=== PATIENT | male | born 1970 | race Caucasian/White ===

== ENCOUNTER → 2017-05-24 | Outpatient (CLI) | payer BC ==
[~2017-05-24] MED LIST: ASPIRIN81 M2 PO; FLONASE 0.05% N16 G1; NEXIUM PO; ZESTORETIC 20-1 EAC1 PO
--- NOTE | ~2017-05-24 | EKG ---
PATIENT: RADHA REYNA UNIT #: [id number] Ventricular Rate: 78 BPM Atrial Rate: 78 BPM P-R Interval: 150 ms QRS Duration: 96 ms Q-T Interval: 414 ms QTC Calculation(Bezet): 471 ms P [place]: 16 degrees Calculated R [place]: 19 degrees Calculated T [place]: 35 degrees Diagnosis Line: Normal sinus rhythm Diagnosis Line: Normal ECG Diagnosis Line: No previous ECGs available Diagnosis Line: Confirmed by KAIDEN MAZARIEGOS MD ([id number]) on Diagnosis Line: 05/25/2017 8:00:32 AM INTERPRETING MD: YAIR CRENSHAW
[2017-05-24 15:51] LABS: BUN/CREATININE RATIO 17.5; CALCIUM SERUM 9.3 mg/dL (8.4-10.2); CREATININE SERUM 0.8 mg/dL (0.6-1.4); GLOM FILT RATE Estimated 107.9 mL/min (>60); POTASSIUM 3.1 mmol/L (3.5-5.1)
== END | disposition home or self-care (01) ==
LOC: CAMB 12:49
PROVIDERS: Surgery
DX: Z01.818 Encounter for other preprocedural examination (principal); K43.9 Ventral hernia without obstruction or gangrene
CPT/HCPCS: 36415; 80048; 93005

== ENCOUNTER → 2017-05-28 | Day surgery (SDC) | payer BC ==
--- NOTE | ~2017-05-28 | OR ---
Unit #: [id number] #: [id number] Patient: RADHA REYNA [id number] [facility]. [place], [place] [address] [id number] O MR#: [id number] NAME: RADHA REYNA ROOM: Date of Procedure: 05/28/2017 Admission Date: 05/28/2017 Surgeon: Charlie Driver M.D. : 1970 Attending Physician: Charlie Driver M.D. Referring Physician: Charlie Driver M.D. Primary Care Physician: Rocio Mensah M.D. OPERATIVE REPORT PREOPERATIVE DIAGNOSIS Recurrent incisional hernia. POSTOPERATIVE DIAGNOSIS Complex 5 cm diameter recurrent incarcerated incisional hernia. PROCEDURE PERFORMED Laparoscopic ventral hernia repair of incarcerated recurrent incisional hernia with 8 x 10 Ventralight mesh. HEALTH PHYSICIST Shailesh Owens M.D. ANESTHESIA General endotracheal anesthesia. ESTIMATED BLOOD LOSS Minimal. IV FLUIDS 500 crystalloid. COMPLICATIONS None. INDICATIONS FOR PROCEDURE The patient is a 46-year-old gentleman, who presents with complex recurrent ventral hernia. DESCRIPTION OF PROCEDURE The patient was taken to the operating theater and placed in a supine position. General anesthesia was induced. The abdomen was prepped and draped. A 5-mm Optiview trocar was placed in the left upper quadrant without difficulty. The abdomen was insufflated to 15 mmHg with CO2. Under direct vision, I placed left lower quadrant 10 mm, right upper quadrant 5 mm, right lower quadrant 5 mm port. The patient was found to have complex hernia with multiple individual defects incarcerated with omentum. This was reduced with combination of blunt and sharp dissection. I placed an 8 x 10 Ventralight mesh into position. This was held in place with single-stranded Vicryl sutures and delivered transcutaneous. I then used a tacking device to tack in 2 circumferential rows. The mesh covered the defect by at least 5 cm in all circumference. Hemostasis was Unit #: [id number] #: [id number] Patient: RADHA REYNA adequate. I removed the ports under direct vision and closed the wounds with 4-0 Vicryl. The sutures were cut at skin level. The patient tolerated the procedure well and sent to recovery room in good condition. Dictated by... Robyn Hill TD: 05/28/2017 17:10 JOB #: [id number] OPERATIVE REPORT Page 1 of 1 X Charlie Driver MD PROCEDURE OPERATIVE NOTE
== END | disposition home or self-care (01) ==
LOC: CSUR 10:19
DX: K43.0 Incisional hernia with obstruction, without gangrene (principal); I10 Essential (primary) hypertension; G47.30 Sleep apnea, unspecified; R73.03 Prediabetes; Z87.891 Personal history of nicotine dependence; Z79.82 Long term (current) use of aspirin; Z79.51 Long term (current) use of inhaled steroids; Z79.899 Other long term (current) drug therapy; Z98.890 Other specified postprocedural states
CPT/HCPCS: 82947; 84132; C1713; C1781; J0131; J0330; J0690; J1644; J2250; J2405; J2710; J3010